=== PATIENT | male | born 1960 | race Caucasian/White ===

== ENCOUNTER 2019-10-31 14:42 | Outpatient (CLI) | payer SELFPAY ==
--- NOTE | 2019-10-31 | US_ITS ---
WS: [id number] URINARY BLADDER ULTRASOUND HISTORY: URGENCY HESITANCY COMPARISON: None available. Urinary bladder is not distended. No free fluid in the pelvis. No mass identified. Postvoid volume: 5 cc. US/ bladder [id number] IMPRESSION: Nondistended urinary bladder with no significant post void residual.
== END 2019-10-31 14:43 | disposition home or self-care (01) ==
PROVIDERS: Family Provider Family Medicine; Visit Provider Nurse Practitioner Family
DX: Z01.89 Encounter for other specified special examinations (principal)